=== PATIENT | male | born 1950 | race Caucasian/White ===

== ENCOUNTER 2017-10-26 15:41 | Inpatient (IN) | payer OTHER ==
[~2017-10-26] VITALS: Ht 175.2 cm; Wt 103.2 kg
[2017-10-26] VITALS (7 sets, daily range): BP systolic 109–151; BP diastolic 64–83
[~2017-10-26 15:41] MED LIST: ALBUTEROL2.5 MG/0.5; ALBUTEROL2.5 MG/0.5 INH; AMPICILLIN500 MG PO; BLOOD PRESSURE MED; HYDROCHLOROTHIA25 MG PO; K-DUR 20MEQ20 MEQ PO; LOPRESSOR25 MG PO; NICODERM14 MG/24 H T; PREDNISONE2.5 MG PO; SYMBICORT1 AE1; WATER PILL
[2017-10-26 16:22] LABS: BASO % 0.6 % (0.0-1.0); EOS # 0.2 10*3/uL (0.0-0.4); EOS % 2.7 % (1.0-4.0); HEMATOCRIT 49.1 % (42.0-52.0); HEMOGLOBIN 16.2 g/dl (14.0-18.0); LYMPH # 2.1 10*3/uL (1.3-4.4); LYMPH % 29.6 % (27.0-41.0); MEAN CELL VOLUME 86.1 fl (80.0-94.0); MEAN CORPUSCULAR HGB 28.4 pg (27.0-31.0); MEAN PLATELET VOLUME 9.9 fl (9.6-12.3); MONO # 0.6 10*3/uL (0.1-1.0); MONO % 8.4 % (3.0-9.0); NEUT # 4.2 10*3/uL (2.3-7.9); NEUT % 58.3 % (47.0-73.0); PLATELET COUNT AUTOMATED 180 10*3/uL (130-400); WHITE BLOOD COUNT 7.1 10*3/uL (4.8-10.8)
[2017-10-26] MEDS ORDERED: GLIPIZIDE2.5 MG PO (16:23)
[2017-10-26] MEDS ORDERED: ZOCOR20 MG PO (16:37)
[2017-10-26 16:49] LABS: ALBUMIN 3.8 gm/dl (3.1-4.5); ALKALINE PHOSPHATASE 62 U/L (45-117); BUN 13 mg/dl (7-24); CHLORIDE 98 mmol/L (98-107); CREATININE 0.65 mg/dL (0.70-1.30); POTASSIUM 3.8 mmol/L (3.5-5.1); SGOT/AST 23 IU/L (3-35); SGPT/ALT 28 U/L (12-78); SODIUM 136 mmol/L (136-145); TOTAL PROTEIN 7.9 gm/dL (6.4-8.2)
[2017-10-26 16:52] LABS: TROPONIN I < 0.015 ng/ml (<0.045)
[2017-10-27] VITALS: BP 125/88
[2017-10-27 07:40] LABS: BASO % 0.5 % (0.0-1.0); EOS # 0.2 10*3/uL (0.0-0.4); EOS % 3.1 % (1.0-4.0); HEMATOCRIT 50.4 % (42.0-52.0); HEMOGLOBIN 16.3 g/dl (14.0-18.0); LYMPH # 2.6 10*3/uL (1.3-4.4); LYMPH % 33.2 % (27.0-41.0); MEAN CELL VOLUME 87.5 fl (80.0-94.0); MEAN CORPUSCULAR HGB 28.3 pg (27.0-31.0); MEAN CORPUSCULAR HGB CONC 32.3 g/dl (33.0-37.0); MEAN PLATELET VOLUME 9.9 fl (9.6-12.3); MONO # 0.6 10*3/uL (0.1-1.0); MONO % 7.4 % (3.0-9.0); NEUT # 4.3 10*3/uL (2.3-7.9); NEUT % 55.4 % (47.0-73.0); PLATELET COUNT AUTOMATED 176 10*3/uL (130-400); RED BLOOD COUNT 5.76 10*6/uL (4.50-5.90); RED CELL DISTRI WIDTH 14.2 % (0-14.5); WHITE BLOOD COUNT 7.8 10*3/uL (4.8-10.8)
[2017-10-27 08:00] VITALS: BP 128/99
[2017-10-27 08:01] LABS: BUN 11 mg/dl (7-24); CHLORIDE 98 mmol/L (98-107); CHOLESTEROL 136 mg/dL (<200); CREATININE 0.64 mg/dL (0.70-1.30); HDL CHOLESTEROL 50 mg/dl (40-60); LDL CHOLESTEROL 53 mg/dL (9-159); PHOSPHOROUS 2.8 mg/dL (2.5-4.9); POTASSIUM 3.6 mmol/L (3.5-5.1); SODIUM 138 mmol/L (136-145); TRIGLYCERIDES 164 mg/dl (<150); VLDL CHOLESTEROL 33 mg/dL (6-40)
[2017-10-27 08:07] LABS: THYROID STIM HORMONE (HS) 0.115 uIU/ml (0.358-4.75)
[2017-10-27 10:11] LABS: VITAMIN D, 25-HYDROXY 23.1 ng/mL (30-100)
[2017-10-27 12:00] VITALS: BP 126/76
[2017-10-27 16:00] VITALS: BP 113/93
[2017-10-27 20:00] VITALS: BP 131/87
[2017-10-28] VITALS: BP 117/81
[2017-10-28 08:00] VITALS: BP 101/64
[2017-10-28] MEDS ORDERED: XARELTO20 M1 PO (10:46)
[2017-10-28] MEDS ORDERED: HYDR25T PO (10:46)
== END 2017-10-28 12:05 | disposition home or self-care (01) | DRG 310 ==
LOC: ED 15:41 → EDHOLD 17:50 → 4E 17:50
PROVIDERS: Emergency Medicine; Internal Medicine; Student in an Organized Health Care Education/Training Program
DX: I48.91 Unspecified atrial fibrillation (principal); J44.9 Chronic obstructive pulmonary disease, unspecified; E11.9 Type 2 diabetes mellitus without complications; I10 Essential (primary) hypertension; E78.5 Hyperlipidemia, unspecified; Z72.0 Tobacco use; Z71.6 Tobacco abuse counseling; Z98.42 Cataract extraction status, left eye; Z98.41 Cataract extraction status, right eye; Z83.3 Family history of diabetes mellitus; Z81.8 Family history of other mental and behavioral disorders; Z79.899 Other long term (current) drug therapy; Z79.84 Long term (current) use of oral hypoglycemic drugs